=== PATIENT | female | born 1965 | race Caucasian/White ===

== ENCOUNTER 2017-09-14 09:44 | Emergency (ER) | payer BC ==
[~2017-09-14] VITALS: Ht 170.2 cm; Wt 67.1 kg
[2017-09-14 09:53] VITALS: BP 137/70
[2017-09-14] MEDS ORDERED: KETOROLAC TROMETH 60MG/2ML VIAL IM ONE (11:45)
== END 2017-09-14 12:53 | disposition home or self-care (01) ==
LOC: ER 09:44
DX: S16.1XXA Strain of muscle, fascia and tendon at neck level, initial encounter (principal); G44.209 Tension-type headache, unspecified, not intractable; X58.XXXA Exposure to other specified factors, initial encounter; Y93.89 Activity, other specified; Y99.8 Other external cause status; Y92.89 Other specified places as the place of occurrence of the external cause
CPT/HCPCS: 70450; 96372; 99284; J1885

== ENCOUNTER 2017-09-18 10:35 | Emergency (ER) | payer BC ==
[~2017-09-18] VITALS: Ht 170.2 cm; Wt 66.7 kg
[2017-09-18] MEDS: PROMETHAZINE HCL 25 MG/ML 1ML IM ONE (14:06)
[2017-09-18] MEDS: KETOROLAC TROMETH 60MG/2ML VIAL IM ONE (14:06)
[2017-09-18] MEDS: diphenhdrAMINE HCL 50 MG/1 ML VL IM ONE (14:07)
[2017-09-18 14:13] VITALS: BP 134/75
== END 2017-09-18 15:04 | disposition home or self-care (01) ==
LOC: ER 10:35
DX: R51 Headache (principal)
CPT/HCPCS: 96372; 99284; J1200; J1885; J2550